=== PATIENT | male | born 1995 | race Caucasian/White ===

== ENCOUNTER 2018-08-04 16:13 | Emergency (ER) | payer OTHER ==
[~2018-08-04] VITALS: Ht 157.5 cm; Wt 120.2 kg
[~2018-08-04 16:13] MED LIST: ADVAIRDISKUS; CARBAMAZEPINE400 MG PO; DORYX200 MG PO; KEPPRA 500 MG500 MG PO; ULTRAM 50MG TAB50 MG PO; VERAMYST10 GM NS; VIMPAT50 MG PO; ZOFRAN4 MG PO; ZYRTEC
[2018-08-04 16:37] LABS: ABSOLUTE NEUTROPHILS 5.6 thou/uL (1.4-8.2); BASOPHILS 0.4 % (0.0-2.0); EOSINOPHILS 2.8 % (0.0-3.0); HEMATOCRIT 46.9 % (42.0-52.0); HEMOGLOBIN 16.4 gm/dL (14.0-18.0); LYMPHOCYTES 24.5 % (24.0-44.0); MCH 29.4 pg (26.0-34.0); MCHC 34.9 g/dL (28.0-37.0); MCV 84.2 fL (80.0-100.0); MONOCYTES 9.3 % (1.0-8.0); PLATELET COUNT 188 thou/uL (150-400); RBC 5.58 mil/uL (4.50-6.00); RDW 12.8 % (10.5-14.5); WBC 8.8 thou/uL (4.0-11.0)
[2018-08-04 16:41] LABS: CALCIUM 9.2 mg/dL (8.5-10.1); CREATININE 1.1 mg/dL (0.7-1.3); POTASSIUM 3.6 mmol/L (3.5-5.1)
[2018-08-04 16:46] LABS: ALBUMIN 4.3 g/dL (3.4-5.0); TOTAL BILIRUBIN 0.7 mg/dL (<0.1-1.0); TOTAL PROTEIN 8.4 g/dL (6.4-8.2)
[2018-08-04 17:07] LABS: URINE BILIRUBIN NEGATIVE (Negative); URINE BLOOD NEGATIVE (Negative); URINE CLARITY CLEAR; URINE COLOR YELLOW; URINE GLUCOSE-RANDOM* NEGATIVE (Negative); URINE KETONES TRACE (Negative); URINE LEUKOCYTES-REFLEX NEGATIVE (Negative); URINE NITRITE-REFLEX NEGATIVE (Negative); URINE PROTEIN (DIPSTICK) NEGATIVE (Negative); URINE SPECIFIC GRAVITY 1.025 (1.005-1.035); URINE UROBILINOGEN 0.2 E.U./dl (0.2-1.0)
[2018-08-04 17:18] LABS: AMP/METHAMP Negative (Negative); BARBITURATES Negative (Negative); BENZODIAZEPINES Negative (Negative); COCAINE Negative (Negative); METHADONE Negative (Negative); OPIATES Negative (Negative); PCP Negative (Negative)
[2018-08-04] MEDS ORDERED: VIMPAT50 MG PO (18:17)
[2018-08-04] MEDS ORDERED: MOBIC7.5 MG PO (18:28)
[2018-08-04] MEDS ORDERED: ONDANSETRON HCL4 M2 PO (18:28)
[2018-08-04 18:40] VITALS: BP 122/84
[2018-08-04] MEDS ORDERED: VIMPAT200 MG PO (18:42)
--- NOTE | 2018-08-05 07:33 | EKG ---
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 : 1995 Requested By: Rodolfo Cmaacho Order Number: [id number] MD: Kee Her Measurements Intervals [place] Rate: 123 P: 23 ND: 155 QRS: 95 QRSD: 108 T: -11 QT: 318 QTc: 455 Interpretive Statements Sinus tachycardia Right ventricular conduction delay Compared to ECG 12/24/2009 20:49:22 Heart rate has increased Electronically Signed On 08-05-2018 7:33:38 CDT by Kee Her [email or web address] ��������������������������������������������� <ELECTRONICALLY SIGNED> ���������������������������������������� By: Kee Her MD, [facility] ��������������������������������������������� 08/05/18 0733 1623 22 Kee Her MD, FACC /EPI
== END 2018-08-04 18:41 | disposition home or self-care (01) ==
LOC: ER 16:13
PROVIDERS: Physician Assistant
DX: R56.9 Unspecified convulsions (principal); R51 Headache; R41.0 Disorientation, unspecified; J45.909 Unspecified asthma, uncomplicated; Z91.041 Radiographic dye allergy status; V89.2XXA Person injured in unspecified motor-vehicle accident, traffic, initial encounter; Y93.89 Activity, other specified; Y92.89 Other specified places as the place of occurrence of the external cause; Y99.8 Other external cause status

== ENCOUNTER 2019-04-14 14:13 | Emergency (ER) | payer OTHER ==
[~2019-04-14] VITALS: Ht 185.4 cm; Wt 122.5 kg
[~2019-04-14 14:13] MED LIST changes: +MOBIC7.5 MG PO; +ONDANSETRON HCL4 M2 PO; +VIMPAT200 MG PO
[2019-04-14 15:16] LABS: BASOPHILS 0.7 % (0.0-2.0); EOSINOPHILS 2.9 % (0.0-3.0); HEMATOCRIT 45.9 % (42.0-52.0); HEMOGLOBIN 15.5 gm/dL (14.0-18.0); LYMPHOCYTES 13.6 % (24.0-44.0); MCH 28.9 pg (26.0-34.0); MCHC 33.8 g/dL (28.0-37.0); MCV 85.4 fL (80.0-100.0); MONOCYTES 6.3 % (1.0-8.0); PLATELET COUNT 187 thou/uL (150-400); POLYS 76.5 % (36.0-66.0); RBC 5.37 mil/uL (4.50-6.00); RDW 12.7 % (10.5-14.5); WBC 10.4 thou/uL (4.0-11.0)
[2019-04-14 15:25] LABS: CALCIUM 9.7 mg/dL (8.5-10.1); CREATININE 0.9 mg/dL (0.7-1.3); POTASSIUM 3.8 mmol/L (3.5-5.1)
[2019-04-14] MEDS ORDERED: CLARITIN10 MG PO ×2 (15:29)
[2019-04-14 15:31] LABS: ALBUMIN 4.3 g/dL (3.4-5.0); TOTAL BILIRUBIN 0.6 mg/dL (<0.1-1.0); TOTAL PROTEIN 7.9 g/dL (6.4-8.2)
[2019-04-14 16:47] VITALS: BP 130/85
== END 2019-04-14 16:48 | disposition home or self-care (01) ==
LOC: ER 14:13
PROVIDERS: Nurse Practitioner Family
DX: S01.01XA Laceration without foreign body of scalp, initial encounter (principal); R56.9 Unspecified convulsions; J45.909 Unspecified asthma, uncomplicated; Z91.041 Radiographic dye allergy status; W22.8XXA Striking against or struck by other objects, initial encounter; Y92.89 Other specified places as the place of occurrence of the external cause; Y93.89 Activity, other specified; Y99.8 Other external cause status